=== PATIENT | female | born 2000 | race Hispanic/Latino ===

== ENCOUNTER 2021-02-21 07:31 | Emergency (ER) | payer SELFPAY ==
[~2021-02-21] VITALS: Ht 165.1 cm; Wt 68.0 kg
[2021-02-21] MEDS ORDERED: ZOFRAN4 MG SL (07:35)
[2021-02-21] MEDS ORDERED: DECADRON4 M1 PO (07:35)
== END 2021-02-21 08:37 | disposition home or self-care (01) ==
LOC: ER 07:34
DX: R50.9 Fever, unspecified (principal); R05 Cough; U07.1 COVID-19
CPT/HCPCS: 99283